=== PATIENT | male | born 1965 | race Caucasian/White ===

== ENCOUNTER 2020-03-06 13:32 | Outpatient (CLI) | payer OTHER, SELFPAY ==
--- NOTE | ~2020-03-06 | US_ITS ---
EXAMINATION: US carotid duplex BI DATE: 03/06/2020 14:09 INDICATION: Facial paresthesias TECHNIQUE: Grayscale, color Doppler, and pulsed Doppler images of the cervical carotid arteries were obtained. The degree of vessel stenosis is placed in one of the following categories: normal, <50%, 5 0-69%, >=70% but less than near-occlusion, near-occlusion, or total occlusion. Note that percent sten osis relative to normal distal artery lumen diameter is indirectly measured from velocity measurement s as described by Shahbaz, et al. Radiology 2003; 229:340-346. Notes: Normal: Peak systolic velocity <125 centimeters/sec and no plaque <50%. Peak systolic velocity <125 ( EDV <40; ICA/CCA PSV ratio <2.0; used these factors only a tandem lesions or low cardiac output or co ntralateral disease) 50-69 %: PSV 125-230 (EDV 40-100; ratio 2-4) >= 70% but less than near occlusion: PSV greater than 230 (EDV > 100; ratio> 4.0) Near Occlusion: PSV that is variable; markedly narrowed lumen Occlusion: Absent flow on color/spectral Doppler and no lumen on chase scale. COMPARISON: None. FINDINGS: RIGHT: The right common carotid artery (CCA) peak systolic velocity (PSV) is 83 cm/s. The right internal car otid artery (ICA) PSV is 56 cm/s. The right ICA end-diastolic velocity (EDV) is 21 cm/s. The right IC A/CCA PSV ratio is .7. The external carotid artery (ECA) PSV is 110 cm/s. There is antegrade flow in the right vertebral artery. LEFT: The left CCA PSV is 92 cm/s. The left ICA PSV is 59 cm/s. The left ICA EDV is 11 cm/s. The left ICA/C CA PSV ratio is 0.6. The ECA PSV is 90 cm/s. There is antegrade flow in the left vertebral artery. IMPRESSION: 1. Less than 50% stenosis in the right internal carotid artery by sonographic criteria. 2. Less than 50% stenosis in the left internal carotid artery by sonographic criteria. Reviewed, dictated and finalized at location B. IMPRESSION: 1. Less than 50% stenosis in the right internal carotid artery by sonographic azeb malik. 2. Less than 50% stenosis in the left internal carotid artery by sonographic niall lantigua.
== END 2020-03-06 13:33 | disposition home or self-care (01) ==
PROVIDERS: PCP Family Medicine; Visit Provider Family Medicine
DX: R20.2 Paresthesia of skin (principal); I65.23 Occlusion and stenosis of bilateral carotid arteries
CPT/HCPCS: 93880

== ENCOUNTER 2020-07-27 07:21 | Outpatient (CLI) | payer OTHER, SELFPAY ==
--- NOTE | ~2020-07-27 | XR_ITS ---
EXAMINATION: XR chest 2V EXAM DATE: 07/27/2020 08:54 INDICATION: Shortness of breath possible exposure to asbestos. TECHNIQUE: Portable AP frontal chest x-ray was obtained. There are no prior studies for comparison. FINDINGS: The lungs are clear. There are no pleural effusions. The cardiomediastinal silhouette is within normal limits. There is no pneumothorax suspected. The bones and soft tissues are unremarkab le. IMPRESSION: Unremarkable chest x-ray exam. Reviewed, dictated and finalized at location A. [employer]
--- NOTE | 2020-07-27 07:37 | ECHO_ITS ---
Patient Info Name: Jace Franco Age: 55 years : 1965 Gender: Male Ht: 70 in Wt: 280 lbs BSA: 2.56 m2 HR: 60 bpm BP: 128 / 79 mmHg Technical Quality: Good Exam Date: 07/27/2020 8:27 AM Exam Location: [facility] Patient Status: Outpatient Admit Date: 07/27/2020 Staff Ordering Physician: Nazario Parekh MD Manager Laundry: Musa Shirley, TERRENCE, RT Attending Provider: Nazario Parekh MD Referring Physician: Iglesia LERMA; Exam Type: CA echo doppler color flow Study Info Indications R06.02 - Shortness of breath Complete two-dimensional, color flow and Doppler transthoracic echocardiogram is performed. Strain analysis performed. Summary 1. Complete two-dimensional, color flow and Doppler transthoracic echocardiogram is performed. 2. Left ventricular chamber dimension is normal. 3. Left ventricular systolic function is normal, estimated at 55-60%. 4. There is mildly increased left ventricular wall thickness. 5. The left ventricular diastolic function is normal. 6. E/e' 7 is not elevated. 7. Global longitudinal strain is abnormal at -15.1%. 8. Left atrial chamber dimension is mildly enlarged. 9. There is trace aortic valve regurgitation. 10. There is mild mitral valve regurgitation. 11. No pulmonary hypertension, estimated pulmonary arterial systolic pressure is 35 mmHg. 12. Normal inferior vena cava with >50% collapse upon inspiration consistent with elevated right atrial pressure, 10 mmHg. Left Ventricle E/e' 7 is not elevated. Global longitudinal strain is abnormal at -15.1%. Left ventricular chamber dimension is normal. Left ventricular systolic function is normal, estimated at 55-60%. There is mildly increased left ventricular wall thickness. The left ventricular diastolic function is normal. Right Ventricle Right ventricular chamber dimension is normal. Right ventricular systolic function is normal. Left Atria Left atrial chamber dimension is mildly enlarged. Right Atria Right atrial chamber dimension is normal. Aortic Valve The aortic valve is trileaflet. There is no aortic valve stenosis. There is trace aortic valve regurgitation. Pulmonic Valve There is no pulmonic regurgitation. Mitral Valve There is no mitral valve stenosis. There is mild mitral valve regurgitation. Tricuspid Valve There is no tricuspid valve regurgitation. No pulmonary hypertension, estimated pulmonary arterial systolic pressure is 35 mmHg. Pericardium/Pleural There is no pericardial effusion. Inferior Vena Cava Normal inferior vena cava with >50% collapse upon inspiration consistent with elevated right atrial pressure, 10 mmHg. Aorta The aortic root size at the sinus of Valsalva is normal. Left Ventricular Outflow Tract Name Value Normal LVOT 2D LVOT Diameter 2.2 cm LVOT Doppler LVOT Peak Gradient 4 mmHg LVOT Mean Gradient 2 mmHg LVOT VTI 24 cm LVOT VTI/AV VTI Ratio 0.8 LVOT Stroke Volume 94 ml LVOT
--- NOTE | 2020-07-29 08:08 | WPDPFTINT ---
PFT Interpretation PFT Interpretation: This PFT met all criteria for ATS standards and reproducibility FEV/FVC 75% FEV1 95% FVC 92% No bronchodilator challenge was ordered TLC 87% RV 50% RV/TLC 19% DLCO 82% when adjusted for alveolar volume but not adjusted for hemoglobin Flow volume loops showed Impression: This is a normal PFT. Clinical correlation is advised.
== END 2020-07-27 07:22 | disposition home or self-care (01) ==
PROVIDERS: PCP Family Medicine; Visit Provider Family Medicine
DX: R06.02 Shortness of breath (principal); I34.0 Nonrheumatic mitral (valve) insufficiency
CPT/HCPCS: 71046; 93306; 94375; 94726; 94729

== ENCOUNTER 2020-10-31 11:50 | Outpatient (CLI) | payer OTHER, SELFPAY | END 2020-10-31 11:51 | disposition home or self-care (01) | LOC: ANHCOVIDVC 11:50 | PROVIDERS: PCP Family Medicine | DX: Z23 Encounter for immunization (principal) | CPT/HCPCS: 0001A; 91300 ==

== ENCOUNTER 2020-11-21 11:21 | Outpatient (CLI) | payer OTHER, SELFPAY | END 2020-11-21 11:22 | disposition home or self-care (01) | LOC: ANHCOVIDVC 11:21 | PROVIDERS: PCP Family Medicine | DX: Z23 Encounter for immunization (principal) | CPT/HCPCS: 0002A; 91300 ==

== ENCOUNTER → 2020-12-14 08:57 | Outpatient (CLI) | payer OTHER, SELFPAY ==
[2020-12-16 00:41] LABS: SARS-CoV-2 RNA PCR Negative
== END ==
PROVIDERS: PCP Family Medicine; Visit Provider Nurse Practitioner Family
DX: Z20.822 Contact with and (suspected) exposure to COVID-19 (principal)
CPT/HCPCS: C9803; U0003; U0005

== ENCOUNTER 2021-01-16 16:00 | Outpatient (RCR) | payer OTHER, SELFPAY ==
--- NOTE | 2020-12-21 16:21 | PTOPEVAL ---
PHYSICAL THERAPY EVALUATION Thank you for referring Jace Franco to [facility].? Jace was evaluated for the dx of left shoulder impingement syndrome. The patient is scheduled to be seen for therapy?1x (pt request due to costs and prior knowledge of PT)/week for 4 weeks. Please review, sign, date and return this plan of care MARGOT. I agree with and certify that the following plan of care is medically necessary. Referring Physician Date Attending Provider: Ricardo Salcido MD *PT Outpatient Evaluation Start: 12/21/20 15:14 Freq: Status: Active Protocol: Document 12/21/20 15:14 MLV (Rec: 12/21/20 16:19 MLV [id number]) Therapy Assessment Status Assessment Status Assessment Status Evaluation Evaluation Information Problem Diagnosis left shoulder impingement/pain Onset July 2020 Cause no injury Additional Evaluation Detail Pt began having shoulder pain in late July with the shoulder locking up . He started some stretching from the exercises he learned from right shoulder therapy in the past. The patient saw the MD and received a shot with improved mobility since. The pain is at superior shoulder with movement. Has no trouble with sleeping. 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 Pt does some yardwork. Diagnostic Tests X-Rays For This Problem Yes: bony structure ok Pain Assessment Timing of Pain Assessment Timing of Pain Assessment Assessment Pain Scale Pain Scale Used Numeric (1 - 10) Self Report Pain Assessment Left Upper Posterior Shoulder(s) Reported Pain Level 0 Pain Frequency Acute Other Pain Description 3 with activity Greatest Pain Intensity 10 Pain Aggravating Factors Exercise/Activity Other Pain Aggravating Factors stretching up Pain Behaviors None Pain Score Pain Score 0: Self Report Interventions Used Pain Relief Interventions Used By Exercise,Inactivity/Rest, Patient Position Change Other Alleviating Interventions anti inflammatory Cervical and Lumbar ROM Cervical ROM Reason Not Measured WFL/Left,WFL/Right Cervical ROM Comments tightness and discomfort at left cervical with sidebend/ rotation to the right Upper Extremity Range of Motion General Upper Ext
--- NOTE | 2021-01-01 16:36 | PCPTNOTE ---
Patient did not show up for scheduled appointment this date. Patient called and reported he got his appt time mixed up. Patient plans to check his schedule and call to get a different appt time.
--- NOTE | 2021-01-16 16:44 | PTOPEVAL ---
PHYSICAL THERAPY DISCHARGE SUMMARY Thank you for referring Jcae Franco to [facility].? The patient has completed 5 visits of physical therapy for the left shoulder impingement. Goals have been met. DC PT. Please review, sign, date and return this plan of care. I agree with and certify that the following plan of care. Referring Physician Date Attending Provider: Ricardo Salcido MD *PT Outpatient Discharge Start: 12/21/20 15:14 Freq: Status: Active Protocol: Document 01/16/21 16:02 MLV (Rec: 01/16/21 16:44 MLV [id number]) Therapy Assessment Status Assessment Status Assessment Status Discharge Evaluation Information Problem Diagnosis left shoulder impingement/pain Onset July 2020 Cause no injury Additional Evaluation Detail Patient reports having a lot better mobility but still has trouble with reaching behind and with more resistive activities. Pt reports the neck stiffness has improved but still noted. Patient reports no trouble with HEP and plans to continue them at home. Pain Assessment Pain Scale Pain Scale Used Numeric (1 - 10) Self Report Pain Assessment Left Upper Posterior Shoulder(s) Reported Pain Level 0 Pain Frequency Acute Greatest Pain Intensity 3 Pain Aggravating Factors Exercise/Activity,Lifting Pain Score Pain Score 0: Self Report Interventions Used Interventions Used By Clinicians Education,Electrical Stimulation,Heat,Manual Therapy Techniques Pain Relief Interventions Used By Heat,Inactivity/Rest, Patient Medication,Position Change Upper Extremity Range of Motion General Upper Extremity Range of Motion Reason Not Measured WFL/Left,WFL/Right Gross Upper Extremity Range of Motion ER tightness decreased with Comments less pain at endrange of motion Upper Extremity Muscle Strength Testing General Upper Extremity Strength Reason Not Measured WNL/Left,WNL/Right Palpation Assessment Palpation Palpation 50% decrease in left upper trap, levator scapulae tightness; no longer tender at superior joint at SC joint left Special Tests-Upper Extremity Shoulder Special Tests Empty Can (supraspinatus) Test Negative Left,Negative Right PT Clinical Summary Mr. Franco is a 5
== END 2021-01-17 11:04 | disposition home or self-care (01) ==
LOC: ANHPT 16:00
PROVIDERS: PCP Family Medicine; Visit Provider Orthopaedic Surgery
DX: M75.42 Impingement syndrome of left shoulder (principal); M25.512 Pain in left shoulder; G89.29 Other chronic pain
CPT/HCPCS: 97014; 97110; 97140; 97162; G0283

== ENCOUNTER → 2021-02-15 07:45 | Outpatient (CLI) | payer OTHER, SELFPAY ==
--- NOTE | ~2021-02-15 | MR_ITS ---
EXAMINATION: MR shoulder LT wo con DATE: 02/15/2021 08:29 INDICATION: Left shoulder pain TECHNIQUE: Magnetic resonance imaging (MRI) of the left shoulder was performed without intravenous co ntrast. Sequences included axial PD-weighted FS FSE, coronal oblique PD-weighted FS FSE, coronal obli que T2-weighted FS FSE, sagittal PD-weighted FS FSE, and sagittal T1-weighted SE. COMPARISON: Left shoulder radiographs dated 12/05/2020 FINDINGS: Coracoacromial arch: The acromion undersurface is curved in morphology (type II). The coracoacromial ligament is normal. M ild acromioclavicular osteoarthritis. Rotator cuff: Mild supraspinatus and infraspinatus tendinopathy. There is no articular sided tear along the superio r and anterior aspect of the middle facet footplates of the supraspinatus and conjoined portion of th e supraspinatus and infraspinatus tendons. The tear measures 2 cm AP and from one third of the tendon thickness anteriorly and posteriorly to near full thickness at the midportion of the tear. Mild subs capularis tendinopathy without discrete tear. The teres minor tendon is normal. Normal rotator cuff m uscle bulk and signal. Biceps tendon, glenoid labrum and glenohumeral cartilage: Long head of the biceps tendon is normal. There is amorphous increased signal at the superior to post erior superior glenoid labrum consistent with degenerative tearing. Glenohumeral cartilage is normal. Fluid: Physiologic amount of fluid in the glenohumeral joint and biceps tendon sheath. No loose osteochondra l bodies. No abnormal fluid signal in the subacromial/subdeltoid bursa to suggest bursitis. Bones: Normal marrow signal with no edema, fracture or pathologic marrow replacing process. Mild and marrow edema and minimal cystic change along the middle facet of the greater tuberosity. IMPRESSION: 1. Mild subscapularis, supraspinatus and infraspinatus tendinopathy with moderate sized generally mod erate severity partial-thickness articular sided tear of the supraspinatus and conjoined supraspinatu s and infraspinatus tendons. 2. Degeneration at the superior to posterior superior glenoid labrum. Reviewed, dictated and finalized at location A. IMPRESSION: 1. Mild subscapularis, supraspinatus and infraspinatus tendinopathy with modera te sized generally moderate severity partial-thickness articular sided tear of the supraspinatus and conjoined supraspinatus and infraspinatus tendons. 2. Degeneration at the superior to posterior superior glenoid labrum.
== END ==
PROVIDERS: Visit Provider Orthopaedic Surgery
DX: M25.512 Pain in left shoulder (principal); M75.82 Other shoulder lesions, left shoulder; S46.812A Strain of other muscles, fascia and tendons at shoulder and upper arm level, left arm, initial encounter; M62.89 Other specified disorders of muscle
CPT/HCPCS: 73221

== ENCOUNTER 2021-06-14 14:45 | Outpatient (CLI) | payer OTHER, SELFPAY ==
--- NOTE | 2021-06-14 15:00 | ECG_ITS ---
Measurements Intervals [place] Rate: 59 P: 35 CO: 165 QRS: 18 QRSD: 101 T: 53 QT: 390 QTc: 388 Interpretive Statements SINUS BRADYCARDIA DELAYED PRECORDIAL R/S TRANSITION BORDERLINE ECG Electronically Signed On 06-14-2021 15:02:44 CDT by Michael Jeter D.O.
== END 2021-06-14 14:46 | disposition home or self-care (01) ==
LOC: ANHSURGERY 14:46
PROVIDERS: PCP Family Medicine; Visit Provider Orthopaedic Surgery
DX: Z01.810 Encounter for preprocedural cardiovascular examination (principal); E78.2 Mixed hyperlipidemia; R00.1 Bradycardia, unspecified
CPT/HCPCS: 93005

== ENCOUNTER 2021-06-17 00:09 | Day surgery (SDC) | payer OTHER, SELFPAY ==
[2021-06-14 10:07] VITALS: BMI 41.0
[2021-06-17] VITALS (9 sets, daily range): BP systolic 119–155; BP diastolic 68–89; PULSE 56–86; RESP 16–20; TEMP 36–36.7; O2SAT 94–99
--- NOTE | 2021-06-17 08:20 | WPDANESEPPF ---
Anes - Initial Pre Proc Eval Procedure: Operation Date: 06/17/21 10:30 Proposed Procedures p Left Rotator Cuff Repair, Distal Clavicle Excision - Ricardo Salcido MD Date/Time: 06/17/21 08:20 Surgeon: Ricardo Salcido MD Pre Op Diagnosis: Left Rotator Cuff Tear, AC Arthritis Patient Data Age: 55 Gender: M Height: 1.79 m Weight: 131.54 kg Allergies Allergy/AdvReac Type Severity Reaction Status Date / Time oxycodone Allergy Itching Verified 06/17/21 08:38 codeine AdvReac Mild Nausea and Verified 06/17/21 08:38 Vomiting Home Medications Medication Instructions Recorded Confirmed Type cyanocobalamin (vitamin B-12) 2,000 mcg PO DAILY 06/24/19 06/17/21 History 2,000 mcg tablet,extended release cholecalciferol (vitamin D3) 100 4,000 unit PO DAILY 12/27/19 06/17/21 History mcg (4,000 unit) capsule cetirizine 10 mg tablet 10 mg PO DAILY PRN 07/02/20 06/17/21 History fluticasone propionate 50 1 spray INTRANASAL BID #16 ml 07/02/20 06/17/21 Rx mcg/actuation nasal spray,suspension atorvastatin 10 mg tablet 10 mg PO DAILY #90 tablet 12/17/20 06/17/21 Rx ramipril 10 mg capsule 10 mg PO DAILY #90 cap 02/07/21 06/17/21 Rx ibuprofen 200 mg tablet 200 mg PO Q6H PRN 06/11/21 06/17/21 History meloxicam 15 mg PO DAILY PRN 06/14/21 06/14/21 History Patient hx anesthesia problems: none Family hx anesthesia problems: none Results Review: All pre-operative results and documents have been reviewed as part of the pre-operative evaluation. 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 History of asbestos exposure Left rotator cuff tear Left shoulder pain Mixed hyperlipidemia Obesity, morbid (more than 100 lbs over ideal weight or BMI > 40) Obstructive sleep apnea Osteoarthritis involving multiple joints on both sides of body Seasonal allergic rhinitis Shortness of breath Trigeminal neuralgia of left side of face Type 2 diabetes mellitus without complications Vitamin B12 deficiency anemia Vitamin D deficiency, unspecified Family History Family History Grandparent Acute myocardial infarction, Onset Age: 58 Family history of Parkinson's disease, Onset Age: 92 Social History Social History Smoking packs per day: 3 Smoking cigarettes per day: 60.0 Years smoked: 25 Smoking pack-years: 75.00 Smoking status: Never smoker Smoking end date: 08/24/04 Alcohol intake: never Alcohol use details: 08/24/08 Substance use: never Substance use type: does not use Living arrangements: with family Gender identity (if verbalized by the patient): Male Spiritual care concerns: No Anes - Eval Final PreProcedure Day of Procedure 06/17/21 08:20 Patient weight: morbidly obese Heart: regular rate and rhythm Lungs: clear to auscultation and normal air movement Airway: Mallampati scale class II Neurological: alert and oriented Last oral intake: >/= 8 hours ASA classification: III Emergent: no Anesthetic plan: proceed Anesthesia type and monitoring: general ETT Results Review: All pre-operative results and documents have been reviewed as part of the pre-operative evaluation. Informed Consent: The patient's anesthetic plan and its attendant risks and benefits were discussed with the patient/family/POA. Questions were solicited and answers provided to the satisfaction of the patient/family/POA.
--- NOTE | 2021-06-17 08:23 | WPDANESPNB ---
Anes - Peripheral Nerve Block Date/Time: 06/17/21 08:23 I have discussed with the patient/family/POA the placement of a peripheral nerve block for post-operative pain management, including associated risks, benefits, complications, and side effects. Alternative methods of post-operative analgesia were detailed. Questions were solicited and answers provided to the satisfaction of the patient/family/POA. Time-Out: A pre-procedural Time-Out was completed immediately before starting the procedure and confirmed: Patient Identification, Site, Procedure, Patient Position and the Availability of Requisite Equipment. Clinical Indications: Acute post-operative pain management requested by the operative surgeon. Nerve Block Insertion Note Anes-nerve block: supraclavicular left Patient position: supine Skin prep: chlorhexidine Needle: 22 gauge, stimulating, insulated echogenic needle. Needle length: 80 mm Technique: ultrasound (in plane) Injectate: bupivacaine 0.5% with epi 5 mcg/ml (20cc) Observations: tolerated well Complications: none Procedure start time:: 1025 Procedure end time:: 1030
[2021-06-17] MEDS: LACTATED RINGERS 1,000 ML 30 ML IV CONT ×2 (09:09→12:11)
[2021-06-17] MEDS: ACETAMINOPHEN 500 MG TABLET 1000 MG PO (09:09)
[2021-06-17] MEDS: KETOROLAC 15 MG/ML VIAL (*BKC) IV PUSH (09:11)
--- NOTE | 2021-06-17 09:59 | WPDHPUPDATE1 ---
History and Physical Update Update Date/Time: 06/17/21 09:59 History and Physical has been reviewed, including an updated exam of the patient. There are NO changes in the patient's condition. Risks, benefits, and alternatives have been discussed and questions answered. Patient agrees to proceed with procedure.
[2021-06-17] MEDS: ceFAZolin 3 GM/D5W 100 ML 100 ML IVPB (10:40)
--- NOTE | 2021-06-17 12:11 | W.PM.PROC2 ---
Procedure Note - Detailed Date of Procedure 06/17/21 Pre-op Diagnosis Left Rotator Cuff Tear, AC Arthritis Post-op Diagnosis same Procedure Performed left rotator cuff repair with DCE Surgeon Ricardo Salcido MD Naval Architect Angeli Huerta Anesthesia general and regional Description of Procedure Patient was identified and proper site identified. In the preop holding area the anesthesia team performed a left upper extremity block. He was then taken to the operating room and transferred to the or table taking care to pad the torso and extremities. After general anesthetic induction and intubation, he was put in a semi beach chair position in the usual manner for a left shoulder procedure. His head was secured taking care to neither rotate nor extend the head and neck. The left upper extremity was prepped and draped free in usual sterile fashion. The subcutaneous tissue in the area of the incision was injected with 10 cc of 0.25% Marcaine and epinephrine solution. An oblique anterior incision was made extending from the AC joint distally in line with the fibers of the deltoid. Subcutaneous tissue was sharply dissected down to the deltoid fascia. The deltoid was dissected off the anterior portion of the acromion in the distal end of the clavicle. A 2 cm split was made at the junction between the anterior and middle thirds of the deltoid. Using the microsagittal saw the last 8 mm of clavicle removed. The saw was also used to perform the acromioplasty and then the undersurface of the acromion was rasped smooth. There is an abundance of thickened bursa which was sharply debrided allowing for complete inspection of the cuff. The anterior most portion of the supraspinatus was a palpable defect in the cuff which was able to be opened up and the degenerative tended removed from within it. The repair was carried out with 2. Ethibond suture being a simpson which repair which was stable as the shoulder was taken range of motion. The wound was irrigated with sterile NaCl solution. The deltoid was repaired back to the acromion with 2. Ethibond suture passed through bone and the remainder of the deltoid repair carried out with 2. Vicryl. Subcutaneous tissue was reapproximated with 2. Strata fix and then tissue adhesive used for the skin. Sterile dressing was applied. There were no known intraoperative complications, and perioperative antibiotics were administered. Estimated Blood Loss 20 Drains No Packing No Pathology none sent Complications No immediate complications Condition stable Disposition PACU
[2021-06-17 12:31] LABS: Glucose Point of Care 133 mg/dl (65-105)
== END 2021-06-17 14:12 | disposition home or self-care (01) ==
PROVIDERS: PCP Family Medicine; Visit Provider Orthopaedic Surgery
PROC: (CPT 23420; principal; 2021-06-17 10:30)
DX: M75.102 Unspecified rotator cuff tear or rupture of left shoulder, not specified as traumatic (principal); M19.011 Primary osteoarthritis, right shoulder; I10 Essential (primary) hypertension; R20.2 Paresthesia of skin; E78.2 Mixed hyperlipidemia; G47.33 Obstructive sleep apnea (adult) (pediatric); G50.0 Trigeminal neuralgia; E11.9 Type 2 diabetes mellitus without complications; E55.9 Vitamin D deficiency, unspecified; E53.8 Deficiency of other specified B group vitamins; G89.18 Other acute postprocedural pain; E66.8 Other obesity; Z68.41 Body mass index [BMI] 40.0-44.9, adult
CPT/HCPCS: 64415; 23412; 23120; 82948; A4565; A9270; J0330; J0690; J1100; J1885; J2250; J2405; J2704; J2710; J3010; J7120

== ENCOUNTER 2021-08-13 07:30 | Outpatient (RCR) | payer OTHER, SELFPAY ==
[2021-06-19 07:31] VITALS: BP_SYST 70
--- NOTE | 2021-06-19 09:35 | PTOPEVAL ---
Thank you for referring Jace Franco to [facility].? The patient is scheduled to be seen for therapy? 1-2 x/week for 10 weeks. Please review, sign, date and return this plan of care MARGOT. I agree with and certify that the following plan of care is medically necessary. Referring Physician Date Attending Provider: Ricardo Salcido MD Problem Diagnosis left shoulder RTC repair Onset chronic Additional Evaluation Detail surgery on 06/17/21. Subjective Information he received previous therapy Query Text:As Reported By Patient/ on the left shoulder in November Family without improved symptoms. He underwent RTC repair on . He is wearing his sling. Reports increased pain at night with difficulty sleeping . He is limited with all reaching task following surgery. He required assistance with ADL's. 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 Pain Assessment Left Shoulder(s) Reported Pain Level 6 Pain Description Aching,Incisional,Numbness, Sharp,Tender on Palpation, Tightness Pain Frequency Continuous Lowest Pain Intensity 0 Greatest Pain Intensity 10 Pain Aggravating Factors ADL's,Exercise/Activity, Lifting Upper Extremity Range of Motion Scapular/ Shoulder Range of Motion Left Scapular: Retraction Hypomobile Scapular: Protraction Hypomobile Scapular Downward Rotation Hypomobile Scapular Upward Rotation Hypomobile Shoulder Flexion - Active 18 Shoulder Flexion - Passive 60 Shoulder Extension - Active 15 Shoulder Abduction - Active 35 Shoulder Abduction - Passive 70 Shoulder Medial Rotation - Active 35 Shoulder Lateral Rotation - Active 0 Scapular/Shoulder Range of Motion Edema,Muscle Weakness,Pain, Limitations Soft Tissue Restriction Scapular/Shoulder Range of Motion pain with all shoulder motions Comments rotation measured supine with GH joint abducted 25 dg Upper Extremity Muscle Strength Testing General Upper Extremity Strength Gross Upper Extremity Strength Comments left shoulder flex/ext/ abduction: 2-/5 elbow flex/ext: 3/5 Posture Posture Sitting Position Lalo
[2021-07-19 07:00] VITALS: BP_SYST 170
--- NOTE | 2021-07-19 09:10 | PTOPEVAL ---
Addendum entered by Kayleen Bean, PT 07/19/21 09:12: Thank you for referring Jace Franco to [facility].? The patient is scheduled to be seen for therapy? 1-2 x/week for 6 weeks. Please review, sign, date and return this plan of care MARGOT. Original Note: Physical Therapy Progress NOte Thank you for referring Jace Franco to [facility].? The patient is scheduled to be seen for therapy? ____x/week for ___ weeks. Please review, sign, date and return this plan of care MARGOT. I agree with and certify that the following plan of care is medically necessary. Referring Physician Date Attending Provider: Ricardo Salcido MD Problem Diagnosis left shoulder RTC repair Onset chronic Additional Evaluation Detail He underwent RTC repair on . 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 Subjective Information He is able to perform reaching Query Text:As Reported By Patient/ task without significant Family limitations. He is carrying light objects without limitations. He is stiff in the morning. He is consistent with his HEP. He is using heat for pain and tightness. Reports the shoulder is sore by the end of the day just from use. Pain Assessment Self Report Pain Assessment Left Shoulder(s) Reported Pain Level 2 Pain Description Soreness Lowest Pain Intensity 0 Greatest Pain Intensity 3 Pain Aggravating Factors Exercise/Activity,Walking Upper Extremity Range of Motion Scapular/ Shoulder Range of Motion Left Scapular: Retraction Hypomobile Scapular: Protraction Hypomobile Scapular Downward Rotation Hypomobile Scapular Upward Rotation Hypomobile Shoulder Flexion - Active 160 Shoulder Flexion - Passive 170 Shoulder Extension - Active 35 Shoulder Abduction - Active 145 Shoulder Abduction - Passive 170 Shoulder Medial Rotation - Active 75 Shoulder Lateral Rotation - Active 68 Scapular/Shoulder Range of Motion Soft Tissue Restriction Limitations Scapular/Shoulder Range of Motion rotation measured supine with Comments GH joint abducted 90 dg Upper Extremity Muscle Strength Testing Scapular/Shoulder Left Scapular Retraction - Rhomboid 2+ Poor + Scapular Retraction - Middle Trapezius 2+ Poor + Scapular Retraction - Lower Trapezius 2+ Poor + Shoulder
--- NOTE | 2021-08-13 08:36 | PCPTNOTE ---
Admitting Provider: Attending Provider: Ricardo Salcido MD Patient:Jace Franco Date of :1965 Physical Therapy Progress Note Patient has been seen for 12 therapy visits from 06/19/21 to 08/13/21 to address his left UE impairments from s/p rotator cuff repair. As a result of skilled therapy services he demonstrates improved pain at rest and with activities, improved shoulder motion and improved shoulder strength. Left shoulder flex: 160 dg, ext: 40 dg, abduction:162 dg, ext rotation: C6/ 75 dg, int rot: L2/ 80 dg strength: flex/abd: 4/5, ext: 5/5, ext rotation:4-/5 int rotation: 5/5 [ End ] The goals have been partially met at this time. He demonstrates understanding and indep with his HEP at this time. Will hold chart open for 30 days for Jace to return to work and determine if UE limitations are noted with normal work task. If he does not return in 30 days will DC at that time. Thank you for referring this patient to [facility]. Please review, sign, date and return this discharge summary MARGOT. I have been updated about the patient's current status and I agree with discharge from the above service at this time. Referring Physician Date
--- NOTE | 2021-09-10 13:55 | PCPTNOTE ---
Admitting Provider: Attending Provider: Ricardo Salcido MD Patient:Jace Franco Date of :1965 Discharge Note Patient has not returned for any further treatments since 08/13/2021, therefore he will be discharged at this time. Patient?s initial visit was on 06/19/2021 07:30 and he had a total of 12 visits. The goals have been partially met. Thank you for referring this patient to [facility]. Please review, sign, date and return this discharge summary MARGOT. I have been updated about the patient's current status and I agree with discharge from the above service at this time. Referring Physician Date
== END 2021-09-11 09:45 | disposition home or self-care (01) ==
LOC: ANHPT 07:30
PROVIDERS: PCP Family Medicine; Visit Provider Orthopaedic Surgery
DX: Z48.89 Encounter for other specified surgical aftercare (principal); Z98.890 Other specified postprocedural states
CPT/HCPCS: 97014; 97035; 97110; 97140; 97163; G0283

== ENCOUNTER 2021-11-05 00:32 | Day surgery (SDC) | payer OTHER, SELFPAY ==
[2021-10-28 13:29] VITALS: BMI 39.3
[2021-11-05 08:14] VITALS: BP 135/85; PULSE 96; RESP 20; TEMP 36.2; O2SAT 98; BMI 38.3
[2021-11-05] MEDS: LACTATED RINGERS 1,000 ML 150 ML IV CONT (08:22)
--- NOTE | 2021-11-05 08:51 | WPDANESEPPF ---
Anes - Initial Pre Proc Eval Procedure: Operation Date: 11/05/21 09:30 Proposed Procedures p Screening Colonoscopy - Jules German MD Date/Time: 11/05/21 08:51 Surgeon: Jules German MD Pre Op Diagnosis: neoplasm screening Patient Data Age: 56 Gender: M Height: 1.8 m Weight: 124.7 kg Last Vital Signs Temp 97.1 F L 11/05/21 08:14 Pulse 96 11/05/21 08:14 Resp 20 11/05/21 08:14 BP 135/85 11/05/21 08:14 Pulse Ox 98 11/05/21 08:14 Allergies Allergy/AdvReac Type Severity Reaction Status Date / Time oxycodone Allergy Itching Verified 11/05/21 08:13 codeine AdvReac Mild Nausea and Verified 11/05/21 08:13 Vomiting Home Medications Medication Instructions Recorded Confirmed Type cyanocobalamin (vitamin B-12) 2,000 mcg PO DAILY 06/24/19 10/28/21 History 2,000 mcg tablet,extended release cholecalciferol (vitamin D3) 100 4,000 unit PO DAILY 12/27/19 10/28/21 History mcg (4,000 unit) capsule cetirizine 10 mg tablet 10 mg PO DAILY PRN 07/02/20 10/28/21 History fluticasone propionate 50 1 spray INTRANASAL BID #16 ml 07/02/20 10/28/21 Rx mcg/actuation nasal spray,suspension atorvastatin 10 mg tablet 10 mg PO DAILY #90 tablet 12/17/20 10/28/21 Rx ramipril 10 mg capsule 10 mg PO DAILY #90 cap 02/07/21 10/28/21 Rx acetaminophen 325 mg tablet 650 mg PO Q6H PRN 07/02/21 10/28/21 History phentermine 30 mg capsule 30 mg PO QAM #30 cap 09/24/21 10/28/21 Rx glucosamine-chondroitin 2 cap PO DAILY 10/28/21 10/28/21 History Patient hx anesthesia problems: none Family hx anesthesia problems: none Results Review: All pre-operative results and documents have been reviewed as part of the pre-operative evaluation. 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 History of asbestos exposure Left shoulder pain Mixed hyperlipidemia Morbid obesity with body mass index (BMI) of 40.0 to 44.9 in adult Obesity, morbid (more than 100 lbs over ideal weight or BMI > 40) Obstructive sleep apnea Osteoarthritis involving multiple joints on both sides of body Seasonal allergic rhinitis Shortness of breath Trigeminal neuralgia of left side of face Type 2 diabetes mellitus without complications Vitamin B12 deficiency anemia Vitamin D deficiency, unspecified Surgical History Surgical History Arthritis of left acromioclavicular joint left DCE June 17, 2021 History of arthroscopy of right shoulder Left rotator cuff tear Left rotator cuff repair June 17, 2021 Family History Family History Grandparent Acute myocardial infarction, Onset Age: 58 Family history of Parkinson's disease, Onset Age: 92 Social History Social History Smoking packs per day: 3 Smoking cigarettes per day: 60.0 Years smoked: 25 Smoking pack-years: 75.00 Smoking status: Former smoker Tobacco type: cigarettes Smoking end date: 08/24/04 Alcohol intake: former Alcohol use details: 08/24/08 Substance use: never Substance use type: does not use Living arrangements: with family Gender identity (if verbalized by the patient): Male Spiritual care concerns: No Anes - Eval Final PreProcedure Day of Procedure 11/05/21 08:51 Patient weight: obese Heart: regular rate and rhythm Airway: Mallampati scale class III Neurological: alert and oriented Last oral intake: >/= 8 hours ASA classification: III Emergent: no Anesthetic plan: proceed Anesthesia type and monitoring: general GIVS and standard monitoring Results Review: All
--- NOTE | 2021-11-05 09:06 | WPDGICN ---
Assessment and Plan Assessment and plan (1) Colon cancer screening: Code(s): Z12.11 - Encounter for screening for malignant neoplasm of colon Status: Acute Assessment and Plan: Patient presents today for neoplasia screening. He appears to be at average risk for colon polyps. Further recommendations will be given after endoscopy. GI Consult Note Consult date/time: 11/05/21 09:06 HPI: Jace Franco is a 56 year old male Presents for screening colonoscopy. Patient's current weight appetite bowel movements are normal. Patient denies abdominal pain. He states in the past had some bleeding a colonoscopy many years ago revealed small internal hemorrhoids. His current bowel habits are reported to be normal. Family history is noncontributory. He presents today for neoplasia screening. 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 History of asbestos exposure Left shoulder pain Mixed hyperlipidemia Morbid obesity with body mass index (BMI) of 40.0 to 44.9 in adult Obesity, morbid (more than 100 lbs over ideal weight or BMI > 40) Obstructive sleep apnea Osteoarthritis involving multiple joints on both sides of body Seasonal allergic rhinitis Shortness of breath Trigeminal neuralgia of left side of face Type 2 diabetes mellitus without complications Vitamin B12 deficiency anemia Vitamin D deficiency, unspecified Surgical History Surgical History Arthritis of left acromioclavicular joint left DCE June 17, 2021 History of arthroscopy of right shoulder Left rotator cuff tear Left rotator cuff repair June 17, 2021 Family History Family History Grandparent Acute myocardial infarction, Onset Age: 58 Family history of Parkinson's disease, Onset Age: 92 Social History Social History Smoking packs per day: 3 Smoking cigarettes per day: 60.0 Years smoked: 25 Smoking pack-years: 75.00 Smoking status: Former smoker Tobacco type: cigarettes Smoking end date: 08/24/04 Alcohol intake: former Alcohol use details: 08/24/08 Substance use: never Substance use type: does not use Living arrangements: with family Gender identity (if verbalized by the patient): Male Spiritual care concerns: No Meds Home Medications and Allergies Home Medications Medication Instructions Recorded Confirmed Type cyanocobalamin (vitamin B-12) 2,000 mcg PO DAILY 06/24/19 10/28/21 History 2,000 mcg tablet,extended release cholecalciferol (vitamin D3) 100 4,000 unit PO DAILY 12/27/19 10/28/21 History mcg (4,000 unit) capsule cetirizine 10 mg tablet 10 mg PO DAILY PRN 07/02/20 10/28/21 History fluticasone propionate 50 1 spray INTRANASAL BID #16 ml 07/02/20 10/28/21 Rx mcg/actuation nasal spray,suspension atorvastatin 10 mg tablet 10 mg PO DAILY #90 tablet 12/17/20 10/28/21 Rx ramipril 10 mg capsule 10 mg PO DAILY #90 cap 02/07/21 10/28/21 Rx acetaminophen 325 mg tablet 650 mg PO Q6H PRN 07/02/21 10/28/21 History phentermine 30 mg capsule 30 mg PO QAM #30 cap 09/24/21 10/28/21 Rx glucosamine-chondroitin 2 cap PO DAILY 10/28/21 10/28/21 History Allergies Allergy/AdvReac Type Severity Reaction Status Date / Time oxycodone Allergy Itching Verified 11/05/21 08:13 codeine AdvReac Mild Nausea and Verified 11/05/21 08:13 Vomiting Vital Signs Vital Signs - 24 hr 11/05/21 08:14 Temperature 9
[2021-11-05 09:36] VITALS: BP 117/85; PULSE 67; RESP 19; O2SAT 97
[2021-11-05 09:46] VITALS: BP 114/79; PULSE 71; RESP 17; O2SAT 100
[2021-11-05 09:56] VITALS: BP 126/84; PULSE 63; RESP 21; O2SAT 99
== END 2021-11-05 10:00 | disposition home or self-care (01) ==
PROVIDERS: PCP Family Medicine; Visit Provider Internal Medicine Gastroenterology
PROC: 0DJD8ZZ Inspection of Lower Intestinal Tract, Via Natural or Artificial Opening Endoscopic (ICD-10-PCS; CPT 45378; principal; 2021-11-05 09:30)
DX: Z12.11 Encounter for screening for malignant neoplasm of colon (principal); K64.8 Other hemorrhoids; I10 Essential (primary) hypertension; R20.2 Paresthesia of skin; E78.2 Mixed hyperlipidemia; G47.33 Obstructive sleep apnea (adult) (pediatric); M19.90 Unspecified osteoarthritis, unspecified site; E11.9 Type 2 diabetes mellitus without complications; E55.9 Vitamin D deficiency, unspecified; D51.9 Vitamin B12 deficiency anemia, unspecified; Z87.891 Personal history of nicotine dependence; G50.0 Trigeminal neuralgia; E66.9 Obesity, unspecified; Z68.38 Body mass index [BMI] 38.0-38.9, adult
CPT/HCPCS: 45378; J2704; J7120

== ENCOUNTER 2022-09-20 06:33 | Outpatient (CLI) | payer OTHER, SELFPAY ==
[2022-09-20 07:49] LABS: Basophils Percent Auto 0.4 % (0.2-1.2); Eosinophils Absolute Auto 0.1 K/mm3 (0-0.3); Eosinophils Percent Auto 1.1 % (0-4.4); Hematocrit 43.8 % (42.0-52.0); Immature Granulocyte Absolute 0.01 K/mm3 (0.00-0.031); Immature Granulocyte Percent A 0.2 % (0-0.5); Lymphocytes Absolute Auto 1.74 K/mm3 (0.9-3.2); Lymphocytes Percent Auto 38.2 % (18.3-44.2); Mean Corpuscular HGB Conc 34.2 g/dl (32-36); Mean Corpuscular Hemoglobin 30.1 pg (26-34); Mean Corpuscular Volume 87.8 fl (80-100); Mean Platelet Volume 10.9 fl (7.4-10.4); Monocytes Absolute Auto 0.6 K/mm3 (0.1-0.6); Monocytes Percent Auto 12.1 % (2.6-8.5); Neutrophils Absolute Auto 2.2 K/mm3 (1.3-6.7); Platelet Count Result 171 k/mm3 (150-375); Red Blood Count 4.99 M/mm3 (4.6-6.20); Red Cell Distribution Width 12.7 % (11.5-14.5); White Blood Count 4.6 K/mm3 (4.5-10.0)
[2022-09-20 08:08] LABS: Alanine Aminotransferase 38 U/L (6-50); Albumin Level 4.2 g/dL (3.5-5.1); Alkaline Phosphatase 64 U/L (38-126); Anion Gap 5 mmol/L (8-16); Aspartate Amino Transferase 31 U/L (17-59); Bilirubin,Total 0.7 mg/dL (0.2-1.3); Blood Urea Nitrogen 17 mg/dL (9-20); Calcium 8.7 mg/dL (8.4-10.2); Carbon Dioxide 28 mmol/L (22-30); Chloride 107 mmol/L (98-107); Cholesterol 125 mg/dL (0-200); Estimated Glomerular Filt Rate > 60; Glucose 113 mg/dL (65-110); HDL Direct 41 mg/dL; Potassium 4.8 mmol/L (3.4-5.0); Sodium 140 mmol/L (137-145); Triglycerides 56 mg/dL (<150)
[2022-09-20 08:11] LABS: Creatinine Urine 163.4 mg/dL
[2022-09-20 08:14] LABS: MALB Creatinine Ratio 5.3 mg/g (0-30); Microalbumin Urine Random 8.7 mg/L (0-16.7)
[2022-09-20 08:19] LABS: LDL Cholesterol Direct 66 mg/dL
[2022-09-20 08:37] LABS: Prostate Specific Antigen 0.4 ng/mL (< OR = 4.0)
[2022-09-20 09:03] LABS: Appearance Urine Clear (Clear); Bilirubin Urine Negative (Negative); Blood Urine Negative (Negative); Color Urine Yellow (Yellow); Glucose Urine UA Negative (Negative); Ketones Urine Negative (Negative); Leukocyte Esterase Ur Negative LEU/UL (NEGATIVE); Nitrate Urine Negative (Negative); Protein Urine Negative (Negative); Specific Grav Ur >= 1.030 (1.001-1.035); Urobilinogen Urine 0.2 mg/dL (<2.0); pH Urine 5.5 (5.0-9.0)
[2022-09-20 09:13] LABS: Folic Acid 9.7 ng/mL (2.76->20)
[2022-09-20 09:30] LABS: Add Urine Microscopic? NO
[2022-09-20 10:59] LABS: Hemoglobin A1C 5.6 % (<5.7)
[2022-09-24 11:34] LABS: Vitamin D 1,25 (OH)2 Total 21 pg/mL (18-72); Vitamin D2 1,25 (OH)2 <8 pg/mL; Vitamin D3 1,25 (OH)2 21 pg/mL
== END 2022-09-20 06:34 | disposition home or self-care (01) ==
PROVIDERS: PCP Family Medicine; Visit Provider Family Medicine
DX: E11.9 Type 2 diabetes mellitus without complications (principal); E78.2 Mixed hyperlipidemia; E55.9 Vitamin D deficiency, unspecified; D51.9 Vitamin B12 deficiency anemia, unspecified; Z12.5 Encounter for screening for malignant neoplasm of prostate
CPT/HCPCS: 36415; 80053; 80061; 81003; 82043; 82607; 82652; 82746; 83036; 84153; 84443; 85025; G0103

== ENCOUNTER → 2024-05-12 09:23 | Outpatient (CLI) | payer OTHER, SELFPAY ==
--- NOTE | ~2024-05-12 | XR_ITS ---
Left Knee Technique: AP, lateral, and oblique views were obtained. Clinical History: Pain Findings: No fracture or dislocation is seen. Osseous alignment is anatomic. There is mild to moderat e tricompartmental degenerative change. Soft tissues are unremarkable. No joint effusion is seen. Impression: [id number] tricompartmental degenerative change. Reviewed, dictated and finalized at location . Impression: [id number] tricompartmental degenerative change.
== END ==
PROVIDERS: PCP Family Medicine; Visit Provider Family Medicine
DX: M17.12 Unilateral primary osteoarthritis, left knee (principal); M25.562 Pain in left knee
CPT/HCPCS: 73564

== ENCOUNTER 2024-06-27 15:45 | Outpatient (RCR) | payer OTHER, SELFPAY ==
--- NOTE | 2024-06-13 16:51 | OPREHPOC ---
Outpatient Therapy Plan of Care This is a Multidisciplinary Plan of Care that may contain components documented by all disciplines (PT, OT, and ST.) PT Problem 1 PT Problem #1 Knowledge Deficit PT Goal 1 Goal / Goal Update [place] with HEP Target Visit 4 PT Problem 2 PT Problem #2 Impaired Range of Motion PT Goal 1 Goal / Goal Update Patient will achieve terminal knee extension for even gait strides Target Visit 8 PT Goal 2 Goal / Goal Update Patient will achieve knee flexion ROM of 120 degrees to improve functional bend and foot clearance with ADLs. Target Visit 8 PT Problem 3 PT Problem #3 Impaired Range of Motion PT Goal 1 Goal / Goal Update Demonstrate 40 degrees angel hip abduction to reduce medial knee patellar pull Target Visit 8 PT Problem 4 PT Problem #4 Impaired Strength PT Goal 1 Goal / Goal Update Improve L knee gross strength to 5/5 to improve stability with ADL and squatting activity. Target Visit 8
--- NOTE | 2024-06-13 16:51 | PTOPEVAL1 ---
Assessment and note entered by Hernando Ingram, PT Evaluation Information Assessment Status Evaluation Diagnosis OA of Left Knee ICD-10 Condition Codes (PT) Pain in left knee M25.562 Onset 2+ years ago Subjective Information Reports that he did see some improvement following injection. He gets most pain in the morning and when he stops moving. He has been doing ice in the evening and heating pad at night. He gets tenderness in the knee as well. Pain is located primarily to the knee at this time. 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 Reported Pain Level Pain Score 0: Self Report Assessment PT Clinical Summary Patient presents with signs and symptoms consistent with knee OA. Patient has limited extension and flexion functional ROM which is effecting gait pattern and ADL performance. Will benefit from skilled therapy to address these deficits to work towards gross functional improvement with gait and ADLs. Plan of Care Interventions Gait Training,Hot Pack/Cold Pack,Manual Therapy, Neuro Re-education,Therapeutic Activities, Therapeutic Exercise PT Services Indicated Yes Treatment Frequency and 1-2x/week for 8 visits Duration These treatments will address the objective and functional deficits as defined above. The patient will be advanced safely and appropriately in order for the patient to progress towards his/her prior level of function. Additional exercises will be introduced and as well as a comprehensive home exercise program upon discharge, if needed, ?to ensure carryover of functional gains achieved in the clinic. This treatment plan has been reviewed and agreement upon by the patient.
--- NOTE | 2024-09-01 13:16 | PTOPDC ---
Assessment and note entered by Alyx Cabrales, PT Assessment Status Discharge - Pt Not Present Diagnosis OA of Left Knee ICD-10 Condition Codes (PT) Pain in left knee M25.562 Onset 2+ years ago Subjective Information pt was not seen this date. Assessment PT Clinical Summary Jace has received 3 PT sessions, from June 13 to June 27. He then stopped attending therapy. Discharge PT due to pt not attending. The goals were not assessed. Plan of Care PT Services Indicated No
== END 2024-09-01 17:50 | disposition home or self-care (01) ==
LOC: ANHPT 15:45
PROVIDERS: PCP Family Medicine; Visit Provider Orthopaedic Surgery
DX: M25.562 Pain in left knee (principal); M17.12 Unilateral primary osteoarthritis, left knee
CPT/HCPCS: 97110; 97140; 97161